=== PATIENT | female | born 1960 | race Caucasian/White ===

== ENCOUNTER 2019-04-20 10:54 | Emergency (ER) | payer MEDICAID, OTHER ==
[~2019-04-20] VITALS: Ht 157.5 cm; Wt 57.0 kg
[~2019-04-20 10:54] MED LIST: FOLIC ACID; IRON; MVI
[2019-04-20] MEDS ORDERED: SODIUM CHLORIDE 0.9% 1,000 ML IV ONE (11:28)
[2019-04-20 12:09] LABS: BASOPHILS % 0.6 % (0.0-2.0); EOSINOPHILS % 0.3 % (0.0-5.0); HEMATOCRIT. 44.3 % (36.0-48.0); HEMOGLOBIN. 15.2 g/dL (12.0-16.0); LYMPHOCYTES % 27.5 % (20.0-50.0); MEAN CORPUSCULAR HEMOGLOBIN 32.7 pg (28.0-32.0); MEAN PLATELET VOLUME 11.4 fl (7.4-10.4); MONOCYTES % 8.1 % (2.0-8.0); NEUTROPHILS % 63.5 % (40.0-76.0); PLATELET 180 x1000/uL (130-400); RED BLOOD CELL COUNT 4.66 mill/uL (4.2-5.4); RED CELL DISTRIBUTION WIDTH 12.6 % (11.6-14.6)
[2019-04-20 12:16] LABS: PROTHROMBIN TIME 10.7 sec (9.6-11.0)
[2019-04-20 12:18] LABS: CHLORIDE 109 mEq/L (98-107)
[2019-04-20 12:29] LABS: B-HCG QUANTITATIVE 7 mIU/mL (<3)
[2019-04-20 14:03] LABS: CLARITY URINE CLEAR (CLEAR); COLOR URINE YELLOW (YELLOW); KETONES URINE NEGATIVE (NEGATIVE); LEUKOCYTE ESTERASE URINE NEGATIVE (NEGATIVE); NITRITE URINE NEGATIVE (NEGATIVE); OCCULT BLOOD URINE NEGATIVE (NEGATIVE); PH URINE 8.5 (4.5-8.0); PROTEIN URINE NEGATIVE (NEGATIVE); SPECIFIC GRAVITY URINE 1.005 (1.005-1.030); UROBILINOGEN URINE 0.2 E.U./dL (0.2-1.0)
[2019-04-20 14:47] VITALS: BP 138/63
== END 2019-04-20 14:49 | disposition home or self-care (01) ==
LOC: ER 10:54
DX: N81.10 Cystocele, unspecified (principal); R10.2 Pelvic and perineal pain; I10 Essential (primary) hypertension; Z98.890 Other specified postprocedural states
CPT/HCPCS: 36415; 76830; 76856; 80048; 81003; 84702; 85025; 85610; 86850; 86900; 86901; 99284; J7030

== ENCOUNTER 2021-08-09 01:03 | Emergency (ER) | payer OTHER ==
[~2021-08-09] VITALS: Ht 180.3 cm; Wt 5.0 kg
[2021-08-09 01:20] VITALS: BP 118/73
== END 2021-08-09 02:28 | disposition home or self-care (01) ==
LOC: ER 01:03
DX: F41.9 Anxiety disorder, unspecified (principal); D64.9 Anemia, unspecified; F32.9 Major depressive disorder, single episode, unspecified; K21.9 Gastro-esophageal reflux disease without esophagitis; I10 Essential (primary) hypertension; R00.0 Tachycardia, unspecified; Z90.710 Acquired absence of both cervix and uterus
CPT/HCPCS: 93005; 99283